=== PATIENT | female | born 1940 | race Caucasian/White ===

== ENCOUNTER → 2016-07-02 | Outpatient (CLI) | payer MEDICARE ==
[~2016-07-02] MED LIST: ACIDOPHILUS LA1 EAC1 PO; ARANESP60 MCG/1 M IJ; ATORVASTATIN CA20 MG PO; BIOTENE DRY MO237 ML MM; CALCITRIOL PO; CALCIUM CITRAT1 EA10; CHOLESTYRAMINE P4 GM PO; CREON 60000 U-11 ECC PO; CYCLOBENZ5 MG PO; DULCOLAX S10 MG/SUPP RC; ERGOCALCIFER50000 IU PO; GOOD NEIGH1200 MG/15 PO; GOOD NEIGHBOR P44 ML NAS; IMODIUM A-D2 M3 PO; LASIX20 M1 PO; LEXAPRO20 M1 PO; MEGACE400 MG/10 PO; MIRTAZAPINE15 M1 PO; MULTI-VITAMIN1 EACH PO; MYRBETRIQ25 MG PO; POTASSIUM CH2 MEQ/ML PO; PRILOSEC 20MG20 MG PO; RESTASIS 0.4 M0.4 M1 OU; SODIUM BIC650 MG/TAB PO; TIROSINT100 MC1 PO; TUMS EXTRA STR750 MG PO; TYLENOL 325MG325 MG PO
== END ==
LOC: LAB 06:20
DX: E83.51 Hypocalcemia (principal)

== ENCOUNTER → 2016-07-06 | Outpatient (CLI) | payer MEDICARE | LOC: LAB 21:00 | DX: E87.2 Acidosis (principal); N30.00 Acute cystitis without hematuria ==

== ENCOUNTER → 2016-07-09 | Outpatient (CLI) | payer MEDICARE | LOC: LAB 05:26 | DX: N39.0 Urinary tract infection, site not specified (principal); D63.1 Anemia in chronic kidney disease; E87.6 Hypokalemia; E83.51 Hypocalcemia; R89.9 Unspecified abnormal finding in specimens from other organs, systems and tissues ==

== ENCOUNTER → 2016-07-13 | Outpatient (CLI) | payer MEDICARE | LOC: LAB 07:00 | DX: E87.2 Acidosis (principal) ==

== ENCOUNTER → 2016-07-16 | Outpatient (CLI) | payer MEDICARE | LOC: LAB 05:37 | DX: N18.3 Chronic kidney disease, stage 3 (moderate) (principal); E11.9 Type 2 diabetes mellitus without complications ==

== ENCOUNTER 2016-08-20 15:05 | Outpatient (RCR) | payer MEDICARE, MEDICAID ==
[~2016-08-20] VITALS: Ht 152.4 cm; Wt 47.3 kg
[2016-08-20 15:37] VITALS: BP 128/90
[2016-08-20] MEDS ORDERED: ATORVASTATIN CA20 MG PO (15:41)
[2016-08-20] MEDS ORDERED: BIOTENE DRY MO237 ML MM (15:41)
[2016-08-20] MEDS ORDERED: CALCITRIOL PO (15:42)
[2016-08-20] MEDS ORDERED: DULCOLAX S10 MG/SUPP RC (15:42)
[2016-08-20] MEDS ORDERED: CREON 60000 U-11 ECC PO (15:43)
[2016-08-20] MEDS ORDERED: CHOLESTYRAMINE P4 GM PO (15:43)
[2016-08-20] MEDS ORDERED: CYCLOBENZ5 MG PO (15:44)
[2016-08-20] MEDS ORDERED: ERGOCALCIFER50000 IU PO (15:44)
[2016-08-20] MEDS ORDERED: IMODIUM A-D2 M3 PO (15:45)
[2016-08-20] MEDS ORDERED: TIROSINT100 MC1 PO (15:45)
[2016-08-20] MEDS ORDERED: ACIDOPHILUS LA1 EAC1 PO (15:45)
[2016-08-20] MEDS ORDERED: LEXAPRO20 M1 PO (15:46)
[2016-08-20] MEDS ORDERED: MEGACE400 MG/10 PO (15:46)
[2016-08-20] MEDS ORDERED: MULTI-VITAMIN1 EACH PO (15:47)
[2016-08-20] MEDS ORDERED: GOOD NEIGH1200 MG/15 PO (15:47)
[2016-08-20] MEDS ORDERED: PRILOSEC 20MG20 MG PO (15:48)
[2016-08-20] MEDS ORDERED: POTASSIUM CH2 MEQ/ML PO (15:48)
[2016-08-20] MEDS ORDERED: RESTASIS 0.4 M0.4 M1 OU (15:49)
[2016-08-20] MEDS ORDERED: SODIUM BIC650 MG/TAB PO (15:49)
[2016-08-20] MEDS ORDERED: TUMS EXTRA STR750 MG PO (15:50)
[2016-08-20] MEDS ORDERED: TYLENOL 325MG325 MG PO (16:04)
[2016-08-20 16:14] VITALS: BP 122/76
[2016-08-22 14:18] VITALS: BP 137/82
[2016-08-22 15:11] VITALS: BP 161/88
[2016-08-25 14:07] VITALS: BP 148/75
[2016-08-26 15:00] VITALS: BP 104/69
[2016-08-26 16:30] VITALS: BP 111/82
[2016-09-12] MEDS ORDERED: CALCIUM CITRAT1 EA10 (08:01)
[2016-09-12] MEDS ORDERED: MYRBETRIQ25 MG PO (08:05)
[2016-09-12] MEDS ORDERED: GOOD NEIGHBOR P44 ML NAS (08:07)
[2016-10-16] MEDS ORDERED: ARANESP60 MCG/1 M IJ (09:53)
[2016-10-16] MEDS ORDERED: LASIX20 M1 PO (09:56)
[2016-10-16] MEDS ORDERED: MIRTAZAPINE15 M1 PO (09:58)
== END 2016-11-18 | disposition home or self-care (01) ==
LOC: AMSURD
DX: D64.9 Anemia, unspecified (principal)
CPT/HCPCS: J1756

== ENCOUNTER → 2016-09-01 | Outpatient (CLI) | payer MEDICARE, MEDICAID ==
[2016-08-26 16:30] VITALS: BP 111/82
== END ==
LOC: LAB 05:30
DX: D63.1 Anemia in chronic kidney disease (principal)

== ENCOUNTER 2016-09-12 07:24 | Emergency (ER) | payer MEDICARE, MEDICAID ==
[~2016-09-12 07:24] MED LIST changes: -ARANESP60 MCG/1 M IJ; -CALCIUM CITRAT1 EA10; -GOOD NEIGHBOR P44 ML NAS; -LASIX20 M1 PO; -MIRTAZAPINE15 M1 PO; -MYRBETRIQ25 MG PO
[2016-09-12] MEDS ORDERED: CALCIUM CITRAT1 EA10 (08:01)
[2016-09-12] MEDS ORDERED: MYRBETRIQ25 MG PO (08:05)
[2016-09-12] MEDS ORDERED: GOOD NEIGHBOR P44 ML NAS (08:07)
[2016-09-12 09:46] VITALS: BP 116/72
== END 2016-09-12 10:29 | disposition home or self-care (01) ==
LOC: ED 07:24
DX: S00.83XA Contusion of other part of head, initial encounter (principal); S50.01XA Contusion of right elbow, initial encounter; S00.81XA Abrasion of other part of head, initial encounter; W06.XXXA Fall from bed, initial encounter; Y92.003 Bedroom of unspecified non-institutional (private) residence as the place of occurrence of the external cause; I48.91 Unspecified atrial fibrillation; I25.10 Atherosclerotic heart disease of native coronary artery without angina pectoris; Z95.1 Presence of aortocoronary bypass graft; N18.9 Chronic kidney disease, unspecified; D64.9 Anemia, unspecified

== ENCOUNTER → 2016-09-14 | Outpatient (CLI) | payer MEDICARE, MEDICAID ==
[2016-09-12 09:46] VITALS: BP 116/72
[~2016-09-14] MED LIST changes: +ARANESP60 MCG/1 M IJ; +CALCIUM CITRAT1 EA10; +GOOD NEIGHBOR P44 ML NAS; +LASIX20 M1 PO; +MIRTAZAPINE15 M1 PO; +MYRBETRIQ25 MG PO
== END ==
LOC: LAB 10:00
DX: E83.51 Hypocalcemia (principal); D63.1 Anemia in chronic kidney disease

== ENCOUNTER → 2016-09-16 | Outpatient (CLI) | payer MEDICARE, MEDICAID ==
[~2016-09-16] VITALS: Ht 152.4 cm; Wt 48.4 kg
[2016-09-16 13:07] VITALS: BP 108/73
[2016-09-16 19:14] VITALS: BP 109/70
[2016-09-16 20:34] VITALS: BP 108/57
== END ==
LOC: AMSURD 08:24
DX: N17.9 Acute kidney failure, unspecified (principal)
CPT/HCPCS: J3480; J7070

== ENCOUNTER → 2016-09-17 | Outpatient (CLI) | payer MEDICARE, OTHER, MEDICAID ==
[2016-09-16 20:34] VITALS: BP 108/57
== END ==
LOC: LAB 06:05
DX: E83.51 Hypocalcemia (principal)

== ENCOUNTER → 2016-09-19 | Outpatient (CLI) | payer MEDICARE, OTHER, MEDICAID ==
[2016-09-16 20:34] VITALS: BP 108/57
== END ==
LOC: LAB 08:15
DX: D63.1 Anemia in chronic kidney disease (principal)

== ENCOUNTER → 2016-09-23 | Outpatient (CLI) | payer MEDICARE, MEDICAID ==
[2016-09-16 20:34] VITALS: BP 108/57
== END ==
LOC: LAB 06:00
DX: N18.3 Chronic kidney disease, stage 3 (moderate) (principal)

== ENCOUNTER → 2016-10-02 | Outpatient (CLI) | payer MEDICARE, MEDICAID ==
[2016-09-16 20:34] VITALS: BP 108/57
== END ==
LOC: LAB 12:45
DX: N18.3 Chronic kidney disease, stage 3 (moderate) (principal)

== ENCOUNTER 2016-10-16 09:22 | Emergency (ER) | payer MEDICARE, MEDICAID ==
[~2016-10-16] VITALS: Ht 152.4 cm; Wt 45.9 kg
[~2016-10-16 09:22] MED LIST changes: -ARANESP60 MCG/1 M IJ; -LASIX20 M1 PO; -MIRTAZAPINE15 M1 PO
[2016-10-16] MEDS ORDERED: ARANESP60 MCG/1 M IJ (09:53)
[2016-10-16] MEDS ORDERED: LASIX20 M1 PO (09:56)
[2016-10-16] MEDS ORDERED: MIRTAZAPINE15 M1 PO (09:58)
[2016-10-16 12:30] VITALS: BP 125/78
== END 2016-10-16 12:30 | disposition short-term general hospital (02) ==
LOC: ED 09:22
DX: I13.0 Hypertensive heart and chronic kidney disease with heart failure and stage 1 through stage 4 chronic kidney disease, or unspecified chronic kidney disease (principal); I50.9 Heart failure, unspecified; N18.3 Chronic kidney disease, stage 3 (moderate); E11.22 Type 2 diabetes mellitus with diabetic chronic kidney disease; E87.2 Acidosis; Z87.891 Personal history of nicotine dependence; E78.5 Hyperlipidemia, unspecified; E03.9 Hypothyroidism, unspecified; K21.9 Gastro-esophageal reflux disease without esophagitis; I48.91 Unspecified atrial fibrillation; I25.10 Atherosclerotic heart disease of native coronary artery without angina pectoris; Z95.0 Presence of cardiac pacemaker; D64.9 Anemia, unspecified

== ENCOUNTER → 2016-10-16 | Outpatient (CLI) | payer MEDICARE, MEDICAID ==
[2016-09-16 20:34] VITALS: BP 108/57
== END ==
LOC: LAB 06:35
DX: N18.3 Chronic kidney disease, stage 3 (moderate) (principal); E87.2 Acidosis

== ENCOUNTER → 2016-10-21 | Outpatient (REF) ==
[2016-10-16 12:30] VITALS: BP 125/78
[~2016-10-21] MED LIST changes: +ARANESP60 MCG/1 M IJ; +LASIX20 M1 PO; +MIRTAZAPINE15 M1 PO
== END ==
LOC: LAB 06:15
DX: R82.99 Other abnormal findings in urine (principal); N28.9 Disorder of kidney and ureter, unspecified; D64.9 Anemia, unspecified; E87.6 Hypokalemia

== ENCOUNTER → 2016-10-22 | Outpatient (CLI) | payer MEDICARE, MEDICAID ==
[~2016-10-22] VITALS: Ht 152.4 cm; Wt 45.9 kg
[2016-10-22 11:30] VITALS: BP 93/56
== END ==
LOC: AMSURD 11:05
DX: I48.91 Unspecified atrial fibrillation (principal)

== ENCOUNTER → 2016-10-30 | Outpatient (CLI) | payer MEDICARE, MEDICAID ==
[2016-10-22 11:30] VITALS: BP 93/56
== END ==
LOC: LAB 16:23
DX: N39.0 Urinary tract infection, site not specified (principal)

== ENCOUNTER → 2016-11-05 | Outpatient (REF) ==
[2016-10-22 11:30] VITALS: BP 93/56
== END ==
LOC: LAB 05:30
DX: N18.9 Chronic kidney disease, unspecified (principal)

== ENCOUNTER → 2016-11-06 | Outpatient (REF) ==
[2016-10-22 11:30] VITALS: BP 93/56
== END ==
LOC: LAB 13:35
DX: R79.9 Abnormal finding of blood chemistry, unspecified (principal)

== ENCOUNTER → 2016-11-16 | Outpatient (REF) ==
[2016-10-22 11:30] VITALS: BP 93/56
== END ==
LOC: LAB 07:00
DX: N18.3 Chronic kidney disease, stage 3 (moderate) (principal)

== ENCOUNTER → 2016-11-26 | Outpatient (CLI) | payer MEDICARE, MEDICAID ==
[2016-10-22 11:30] VITALS: BP 93/56
== END ==
LOC: LAB 07:18
DX: I50.9 Heart failure, unspecified (principal)

== ENCOUNTER → 2016-11-27 | Outpatient (CLI) | payer MEDICARE, OTHER, MEDICAID ==
[2016-10-22 11:30] VITALS: BP 93/56
== END ==
LOC: LAB 07:46
DX: N28.9 Disorder of kidney and ureter, unspecified (principal)

== ENCOUNTER → 2016-12-22 | Outpatient (CLI) | payer MEDICARE, OTHER, MEDICAID ==
[2016-10-22 11:30] VITALS: BP 93/56
== END ==
LOC: LAB 05:40
DX: N18.3 Chronic kidney disease, stage 3 (moderate) (principal)

== ENCOUNTER → 2016-12-30 | Outpatient (CLI) | payer MEDICARE, OTHER, MEDICAID ==
[2016-10-22 11:30] VITALS: BP 93/56
== END ==
LOC: LAB 05:05
DX: D64.9 Anemia, unspecified (principal)

== ENCOUNTER → 2017-02-04 | Outpatient (CLI) | payer MEDICARE, OTHER, MEDICAID ==
[2016-10-22 11:30] VITALS: BP 93/56
[2017-02-04 06:33] LABS: BUN/CREATININE RATIO 20.4 (6.0-26.0); CALCIUM 8.6 mg/dL (8.4-10.2); POTASSIUM 5.3 mmol/L (3.6-5.0)
[2017-02-04 06:38] LABS: HEMATOCRIT 26.6 % (37.0-47.0); HEMOGLOBIN 8.1 g/dL (12.5-16.0); MEAN PLATELET VOLUME 9.8 fl (7.4-10.4); RED BLOOD COUNT 2.82 M/mm3 (4.10-5.30); RED CELL DISTRIBUTION WIDTH 15.3 % (11.5-14.5); WHITE BLOOD COUNT 7.2 K/mm3 (4.8-10.8)
== END ==
LOC: LAB 05:31
PROVIDERS: Internal Medicine
DX: D63.1 Anemia in chronic kidney disease (principal)

== ENCOUNTER 2017-03-22 18:00 | Emergency (ER) | payer MEDICARE, OTHER, MEDICAID ==
[~2017-03-22] VITALS: Ht 152.4 cm; Wt 45.9 kg
[2017-03-22] MEDS ORDERED: ASPIR LOW81 MG PO (18:13)
[2017-03-22] MEDS ORDERED: CREON 60000 U-11 ECC PO (18:14)
[2017-03-22] MEDS ORDERED: CALCITRIOL PO (18:14)
[2017-03-22] MEDS ORDERED: VITAMIN B12 PO (18:14)
[2017-03-22] MEDS ORDERED: FOLIC ACID1 MG PO (18:15)
[2017-03-22] MEDS ORDERED: ISOSORBIDE30 MG PO (18:16)
[2017-03-22] MEDS ORDERED: MAGNESIUM400 M1 PO (18:18)
[2017-03-22] MEDS ORDERED: SODIUM BIC650 MG/TAB PO (18:19)
[2017-03-22] MEDS ORDERED: CHOLESTYRAMINE1 PO1 (18:19)
[2017-03-22] MEDS ORDERED: REMERON30 M1 PO (18:19)
[2017-03-22] MEDS ORDERED: SOTALOL HCL AF80 MG PO (18:20)
[2017-03-22] MEDS ORDERED: TYLENOL 500MG500 MG PO (18:20)
[2017-03-22 18:50] LABS: MEAN CELL VOLUME 95 fl (78-100); MEAN CORPUSCULAR HEMOGLOBIN 28 pg (27-31); MEAN CORPUSCULAR HGB CONC 30 g/dL (33-37); MEAN PLATELET VOLUME 8.8 fl (7.4-10.4); PLATELET COUNT 241 K/mm3 (130-400); RED CELL DISTRIBUTION WIDTH 17.1 % (11.5-14.5); WHITE BLOOD COUNT 7.7 K/mm3 (4.8-10.8)
[2017-03-22 19:01] LABS: PROTHROMBIN TIME 15.4 SECONDS (9.0-12.0)
[2017-03-22 19:17] LABS: RED BLOOD COUNT 2.29 M/mm3 (4.10-5.30)
[2017-03-22 19:19] LABS: HEMATOCRIT 21.7 % (37.0-47.0); HEMOGLOBIN 6.4 g/dL (12.5-16.0)
[2017-03-22 19:20] LABS: HYPOCHROMIA 1+; LYMPHOCYTE 43 % (20-51); MONOCYTE 10 % (3-10); NEUTROPHILS 42 % (42-75)
[2017-03-22 20:35] VITALS: BP 120/70
== END 2017-03-22 20:35 | disposition home or self-care (01) ==
LOC: ED 18:00
PROVIDERS: Nurse Practitioner Primary Care
DX: R04.0 Epistaxis (principal); D63.8 Anemia in other chronic diseases classified elsewhere; D68.9 Coagulation defect, unspecified; Z79.82 Long term (current) use of aspirin; Z95.0 Presence of cardiac pacemaker; Z95.1 Presence of aortocoronary bypass graft

== ENCOUNTER → 2017-03-23 | Outpatient (CLI) | payer MEDICARE, OTHER, MEDICAID ==
[2017-03-23] VITALS (15 sets, daily range): BP systolic 92–130; BP diastolic 54–79
[~2017-03-23] VITALS: Ht 152.4 cm; Wt 45.9 kg
[~2017-03-23] MED LIST changes: +ASPIR LOW81 MG PO; +CHOLESTYRAMINE1 PO1; +FOLIC ACID1 MG PO; +ISOSORBIDE30 MG PO; +MAGNESIUM400 M1 PO; +REMERON30 M1 PO; +SOTALOL HCL AF80 MG PO; +TYLENOL 500MG500 MG PO; +VITAMIN B12 PO
[2017-03-23 11:07] LABS: HEMATOCRIT 22.1 % (37.0-47.0); HEMOGLOBIN 6.5 g/dL (12.5-16.0)
[2017-03-23 16:21] LABS: HEMATOCRIT 31.2 % (37.0-47.0); HEMOGLOBIN 9.6 g/dL (12.5-16.0)
== END ==
LOC: AMSURD 10:12
PROVIDERS: Nurse Practitioner Primary Care
DX: D64.9 Anemia, unspecified (principal); R04.0 Epistaxis
CPT/HCPCS: J7050

== ENCOUNTER 2017-03-30 07:29 | Emergency (ER) | payer MEDICARE, OTHER, MEDICAID ==
[~2017-03-30] VITALS: Wt 44.9 kg
[2017-03-30 08:22] LABS: EOS # 0.2 (0.04-0.40); EOS % 2.1 % (1.0-5.0); HEMATOCRIT 33.6 % (37.0-47.0); HEMOGLOBIN 10.2 g/dL (12.5-16.0); LYMPH# 1.7 (1.50-4.00); MEAN CELL VOLUME 92 fl (78-100); MEAN CORPUSCULAR HEMOGLOBIN 28 pg (27-31); MEAN CORPUSCULAR HGB CONC 30 g/dL (33-37); MEAN PLATELET VOLUME 8.8 fl (7.4-10.4); MONO # 0.9 (0.20-0.80); NEU # 4.9 (1.40-6.50); PLATELET COUNT 244 K/mm3 (130-400); RED BLOOD COUNT 3.65 M/mm3 (4.10-5.30); RED CELL DISTRIBUTION WIDTH 16.8 % (11.5-14.5); WHITE BLOOD COUNT 7.6 K/mm3 (4.8-10.8)
[2017-03-30 08:37] LABS: BUN/CREATININE RATIO 17.2 (6.0-26.0); CALCIUM 8.6 mg/dL (8.4-10.2); POTASSIUM 5.4 mmol/L (3.6-5.0); TOTAL BILIRUBIN 0.4 mg/dL (0.2-1.3); TOTAL PROTEIN 6.6 g/dL (6.3-8.2)
[2017-03-30 08:59] LABS: URINE APPEARANCE BLOODY; URINE COLOR RED
[2017-03-30 09:00] LABS: URINE WBC >50 /hpf (0-3)
[2017-03-30 10:53] VITALS: BP 116/69
[2017-04-01] MEDS ORDERED: CEFDINIR300 MG PO (11:00)
== END 2017-03-30 09:49 | disposition other institution (70) ==
LOC: ED 07:29
PROVIDERS: Physician Assistant
DX: N39.0 Urinary tract infection, site not specified (principal); R31.0 Gross hematuria; E86.0 Dehydration; N17.9 Acute kidney failure, unspecified; E11.22 Type 2 diabetes mellitus with diabetic chronic kidney disease; I12.9 Hypertensive chronic kidney disease with stage 1 through stage 4 chronic kidney disease, or unspecified chronic kidney disease; N18.3 Chronic kidney disease, stage 3 (moderate); D69.6 Thrombocytopenia, unspecified; K21.9 Gastro-esophageal reflux disease without esophagitis; Z95.0 Presence of cardiac pacemaker; E03.9 Hypothyroidism, unspecified; D64.9 Anemia, unspecified; I48.91 Unspecified atrial fibrillation; K64.4 Residual hemorrhoidal skin tags; Z79.82 Long term (current) use of aspirin; Z88.5 Allergy status to narcotic agent; Z88.0 Allergy status to penicillin; Z88.2 Allergy status to sulfonamides; Z88.8 Allergy status to other drugs, medicaments and biological substances; Z91.018 Allergy to other foods

== ENCOUNTER → 2017-04-06 | Outpatient (CLI) | payer MEDICARE, OTHER, MEDICAID ==
[2017-04-01 11:28] VITALS: BP 101/59
[~2017-04-06] MED LIST changes: +CEFDINIR300 MG PO
== END ==
LOC: LAB 06:35
PROVIDERS: Internal Medicine
DX: D64.9 Anemia, unspecified (principal)

== ENCOUNTER → 2017-05-24 | Outpatient (CLI) | payer MEDICARE, OTHER, MEDICAID ==
[2017-04-01 11:28] VITALS: BP 101/59
[2017-05-24 07:53] LABS: EOS # 0.3 (0.04-0.40); EOS % 5.3 % (1.0-5.0); HEMATOCRIT 27.4 % (37.0-47.0); LYMPH# 2.1 (1.50-4.00); MEAN CELL VOLUME 97 fl (78-100); MEAN CORPUSCULAR HEMOGLOBIN 28 pg (27-31); MEAN PLATELET VOLUME 10.2 fl (7.4-10.4); MONO # 0.7 (0.20-0.80); NEU # 3.3 (1.40-6.50); PLATELET COUNT 215 K/mm3 (130-400); RED BLOOD COUNT 2.83 M/mm3 (4.10-5.30); RED CELL DISTRIBUTION WIDTH 16.1 % (11.5-14.5); WHITE BLOOD COUNT 6.4 K/mm3 (4.8-10.8)
[2017-05-24 08:17] LABS: HEMOGLOBIN 7.9 g/dL (12.5-16.0); MEAN CORPUSCULAR HGB CONC 29 g/dL (33-37)
[2017-05-24 08:29] LABS: BUN/CREATININE RATIO 16.2 (6.0-26.0); CALCIUM 8.7 mg/dL (8.4-10.2); POTASSIUM 5.2 mmol/L (3.6-5.0)
== END ==
LOC: LAB 06:25
PROVIDERS: Internal Medicine
DX: N18.4 Chronic kidney disease, stage 4 (severe) (principal)

== ENCOUNTER → 2017-06-08 | Outpatient (CLI) | payer MEDICARE, OTHER, MEDICAID ==
[2017-04-01 11:28] VITALS: BP 101/59
== END ==
LOC: LAB 05:25
DX: D63.1 Anemia in chronic kidney disease (principal); N28.9 Disorder of kidney and ureter, unspecified

== ENCOUNTER → 2017-07-08 | Outpatient (CLI) | payer MEDICARE, OTHER, MEDICAID ==
[2017-04-01 11:28] VITALS: BP 101/59
[2017-07-08 05:44] LABS: HEMOGLOBIN 8.5 g/dL (12.5-16.0); MEAN PLATELET VOLUME 9.4 fl (7.4-10.4); RED BLOOD COUNT 2.93 M/mm3 (4.10-5.30); WHITE BLOOD COUNT 5.9 K/mm3 (4.8-10.8)
[2017-07-08 05:55] LABS: BUN/CREATININE RATIO 11.3 (6.0-26.0); CALCIUM 7.7 mg/dL (8.4-10.2); POTASSIUM 5.2 mmol/L (3.6-5.0)
== END ==
LOC: LAB 05:15
PROVIDERS: Internal Medicine
DX: N18.4 Chronic kidney disease, stage 4 (severe) (principal); D63.1 Anemia in chronic kidney disease

== ENCOUNTER → 2017-07-22 | Outpatient (CLI) | payer MEDICARE, OTHER, MEDICAID ==
[~2017-07-22] VITALS: Ht 149.9 cm; Wt 40.9 kg
[~2017-07-22] MED LIST changes: +ADULT ASPIRIN81 MG PO; +CALCIUM500 M1 PO; +FERROUS SULFATE65 MG PO; -MIRTAZAPINE15 M1 PO; +NORCO 325 MG-7.1 TA1 PO; -TUMS EXTRA STR750 MG PO; +VELTASSA8.4 GM PO
[2017-07-22 10:08] VITALS: BP 134/73
[2017-07-22 12:53] VITALS: BP 123/72
== END ==
LOC: AMSURD 10:03 → EDSTATUS 10:35
DX: D64.9 Anemia, unspecified (principal)
CPT/HCPCS: J2916; J7050

== ENCOUNTER 2017-07-30 12:28 | Emergency (ER) | payer MEDICARE, OTHER, MEDICAID ==
[~2017-07-30] VITALS: Ht 149.9 cm; Wt 47.6 kg
[~2017-07-30 12:28] MED LIST changes: -AYR SALINE GEL1 NS; -BIOTENE MOIST44.3 ML PO; -CALCIUM CARBONATE PO; -GOOD NEIGHBOR P20 M1 PO; -NITROSTAT0.4 M1 SL; -SORINE PO; -TYLENOL EXTRA500 M2 PO; -XIFAXAN550 MG PO
[2017-07-30 13:50] VITALS: BP 105/60
[2017-07-30] MEDS ORDERED: AYR SALINE GEL1 NS (17:00)
[2017-07-30] MEDS ORDERED: BIOTENE MOIST44.3 ML PO (20:25)
[2017-07-30] MEDS ORDERED: CYCLOBENZ5 MG PO (20:29)
[2017-07-30] MEDS ORDERED: NITROSTAT0.4 M1 SL (20:37)
[2017-07-30] MEDS ORDERED: GOOD NEIGHBOR P20 M1 PO (20:38)
[2017-07-30] MEDS ORDERED: RESTASIS 0.4 M0.4 M1 OU (20:41)
[2017-07-30] MEDS ORDERED: CALCIUM CARBONATE PO (20:43)
[2017-07-30] MEDS ORDERED: SORINE PO (20:43)
[2017-07-30] MEDS ORDERED: TYLENOL EXTRA500 M2 PO (20:44)
[2017-07-30] MEDS ORDERED: XIFAXAN550 MG PO (20:45)
== END 2017-07-30 13:56 | disposition home or self-care (01) ==
LOC: ED 12:28
DX: R04.0 Epistaxis (principal); Z79.82 Long term (current) use of aspirin; E11.22 Type 2 diabetes mellitus with diabetic chronic kidney disease; I12.9 Hypertensive chronic kidney disease with stage 1 through stage 4 chronic kidney disease, or unspecified chronic kidney disease; N18.3 Chronic kidney disease, stage 3 (moderate); Z95.0 Presence of cardiac pacemaker; D69.6 Thrombocytopenia, unspecified; D63.1 Anemia in chronic kidney disease

== ENCOUNTER → 2017-07-30 | Outpatient (CLI) | payer MEDICARE, OTHER, MEDICAID ==
[2017-07-22 12:53] VITALS: BP 123/72
[~2017-07-30] MED LIST changes: +ARANESP100 MCG/1 SC; -ARANESP60 MCG/1 M IJ; +ATORVASTATIN CA10 MG PO; -ATORVASTATIN CA20 MG PO; +AYR SALINE GEL1 NS; +BIOTENE MOIST44.3 ML PO; +CALCIUM CARBONATE PO; -CALCIUM500 M1 PO; -CHOLESTYRAMINE1 PO1; +CHOLESTYRAMINE1 PO1 PO; +GOOD NEIGHBOR P20 M1 PO; +NITROSTAT0.4 M1 SL; +ROCALTROL0.25 MC1 PO; +SORINE PO; +TYLENOL EXTRA500 M2 PO; +XIFAXAN550 MG PO
[2017-07-30 08:01] LABS: HEMOGLOBIN 9.2 g/dL (12.5-16.0); MEAN PLATELET VOLUME 10.6 fl (7.4-10.4); RED BLOOD COUNT 2.96 M/mm3 (4.10-5.30); WHITE BLOOD COUNT 4.4 K/mm3 (4.8-10.8)
[2017-07-30 08:09] LABS: ALBUMIN 2.2 g/dL (3.5-5.0); BUN/CREATININE RATIO 9.4 (6.0-26.0); CALCIUM 7.5 mg/dL (8.4-10.2); POTASSIUM 4.5 mmol/L (3.6-5.0); TOTAL BILIRUBIN 0.3 mg/dL (0.2-1.3); TOTAL PROTEIN 5.3 g/dL (6.3-8.2)
[2017-07-30 08:48] LABS: RED CELL DISTRIBUTION WIDTH 22.3 % (11.5-14.5)
== END ==
LOC: LAB 06:45
PROVIDERS: Internal Medicine
DX: N18.9 Chronic kidney disease, unspecified (principal)

== ENCOUNTER → 2017-08-07 | Outpatient (CLI) | payer MEDICARE, OTHER, MEDICAID ==
[2017-07-30 13:50] VITALS: BP 105/60
[~2017-08-07] MED LIST changes: +AYR SALINE GEL1 NS; +BIOTENE MOIST44.3 ML PO; +CALCIUM CARBONATE PO; +GOOD NEIGHBOR P20 M1 PO; +NITROSTAT0.4 M1 SL; +SORINE PO; +TYLENOL EXTRA500 M2 PO; +XIFAXAN550 MG PO
[2017-08-07 11:21] LABS: STREP SCREEN NEGATIVE (NEGATIVE)
== END ==
LOC: LAB 10:12
PROVIDERS: Internal Medicine
DX: R05 Cough (principal); J02.9 Acute pharyngitis, unspecified

== ENCOUNTER 2017-09-03 19:38 | Emergency (ER) | payer MEDICARE, OTHER, MEDICAID ==
[~2017-09-03] VITALS: Ht 149.9 cm; Wt 47.0 kg
[~2017-09-03 19:38] MED LIST changes: -ALBUTEROL2.5 MG/3 M IH; -ZOFRAN4 M2 PO
[2017-09-03] MEDS ORDERED: ALBUTEROL2.5 MG/3 M IH (20:36)
[2017-09-03 20:48] LABS: EOS # 0.1 (0.04-0.40); EOS % 1.1 % (1.0-5.0); HEMATOCRIT 32.3 % (37.0-47.0); HEMOGLOBIN 10.1 g/dL (12.5-16.0); MEAN CELL VOLUME 106 fl (78-100); MEAN CORPUSCULAR HEMOGLOBIN 33 pg (27-31); MEAN CORPUSCULAR HGB CONC 31 g/dL (33-37); MEAN PLATELET VOLUME 10.1 fl (7.4-10.4); MONO # 0.6 (0.20-0.80); NEU # 4.5 (1.40-6.50); PLATELET COUNT 206 K/mm3 (130-400); RED BLOOD COUNT 3.05 M/mm3 (4.10-5.30); RED CELL DISTRIBUTION WIDTH 18.7 % (11.5-14.5); WHITE BLOOD COUNT 7.2 K/mm3 (4.8-10.8)
[2017-09-03 20:56] LABS: ALBUMIN 2.1 g/dL (3.5-5.0); BUN/CREATININE RATIO 11.6 (6.0-26.0); CALCIUM 7.6 mg/dL (8.4-10.2); POTASSIUM 5.7 mmol/L (3.6-5.0); TOTAL BILIRUBIN 0.7 mg/dL (0.2-1.3); TOTAL PROTEIN 5.9 g/dL (6.3-8.2)
[2017-09-03] MEDS ORDERED: ZOFRAN4 M2 PO (21:17)
[2017-09-04 01:54] VITALS: BP 114/66
[2017-09-04 13:30] LABS: HEMATOCRIT 30.5 % (37.0-47.0); HEMOGLOBIN 9.5 g/dL (12.5-16.0)
== END 2017-09-04 01:54 | disposition home or self-care (01) ==
LOC: ED 19:38
PROVIDERS: Family Medicine
DX: E86.9 Volume depletion, unspecified (principal); K92.2 Gastrointestinal hemorrhage, unspecified; Z87.01 Personal history of pneumonia (recurrent); I50.9 Heart failure, unspecified; I25.2 Old myocardial infarction; I48.91 Unspecified atrial fibrillation; N28.9 Disorder of kidney and ureter, unspecified; D64.9 Anemia, unspecified; Z95.0 Presence of cardiac pacemaker; Z95.1 Presence of aortocoronary bypass graft; E11.9 Type 2 diabetes mellitus without complications; Z79.899 Other long term (current) drug therapy; Z79.82 Long term (current) use of aspirin
CPT/HCPCS: J7030

== ENCOUNTER → 2017-09-03 | Outpatient (CLI) | payer MEDICARE, OTHER, MEDICAID ==
[~2017-09-03] MED LIST changes: +ALBUTEROL2.5 MG/3 M IH; +ZOFRAN4 M2 PO
== END ==
LOC: RAD 11:00
DX: R05 Cough (principal); Z98.890 Other specified postprocedural states; Z95.0 Presence of cardiac pacemaker

== ENCOUNTER → 2017-09-06 | Outpatient (CLI) | payer MEDICARE, OTHER, MEDICAID ==
[2017-09-04 01:54] VITALS: BP 114/66
[~2017-09-06] MED LIST changes: +ALBUTEROL2.5 MG/3 M IH; +ZOFRAN4 M2 PO
[2017-09-06 15:57] LABS: HEMATOCRIT 30.7 % (37.0-47.0); HEMOGLOBIN 9.6 g/dL (12.5-16.0)
== END ==
LOC: LAB 15:30
PROVIDERS: Family Medicine
DX: N18.9 Chronic kidney disease, unspecified (principal); D63.1 Anemia in chronic kidney disease; K92.2 Gastrointestinal hemorrhage, unspecified

== ENCOUNTER → 2017-09-20 | Outpatient (CLI) | payer MEDICARE, OTHER, MEDICAID ==
[2017-09-04 01:54] VITALS: BP 114/66
[2017-09-20 12:25] LABS: HEMATOCRIT 27.9 % (37.0-47.0); HEMOGLOBIN 8.7 g/dL (12.5-16.0); MEAN PLATELET VOLUME 10.6 fl (7.4-10.4); RED BLOOD COUNT 2.8 M/mm3 (4.10-5.30); WHITE BLOOD COUNT 10.1 K/mm3 (4.8-10.8)
[2017-09-20 12:33] LABS: ALBUMIN 1.9 g/dL (3.5-5.0); BUN/CREATININE RATIO 7.1 (6.0-26.0); TOTAL BILIRUBIN 0.5 mg/dL (0.2-1.3); TOTAL PROTEIN 5.2 g/dL (6.3-8.2)
[2017-09-20 12:34] LABS: RED CELL DISTRIBUTION WIDTH 21.9 % (11.5-14.5)
== END ==
LOC: LAB 11:40
PROVIDERS: Nurse Practitioner
DX: R04.0 Epistaxis (principal)